=== PATIENT | female | born 1935 | race Caucasian/White ===

== ENCOUNTER → 2017-05-24 | Outpatient (CLI) | payer MEDICARE ==
[2017-05-24 13:40] LABS: Stool Occult Bld Immuno 1 Negative (NEGATIVE)
== END ==
LOC: OLS 10:37 → LAB SHORT 10:37
PROVIDERS: Family Medicine
DX: Z12.11 Encounter for screening for malignant neoplasm of colon (principal); E03.9 Hypothyroidism, unspecified
CPT/HCPCS: G0328

== ENCOUNTER → 2019-07-09 | Outpatient (CLI) | payer MEDICARE | END | disposition home or self-care (01) | LOC: PLD 11:19 → LAB SHORT 11:19 | DX: L72.0 Epidermal cyst (principal) | CPT/HCPCS: 88304 ==